=== PATIENT | female | born 1995 | race Caucasian/White ===

== ENCOUNTER 2018-02-20 10:10 | Emergency (ER) | payer OTHER ==
[~2018-02-20 10:10] MED LIST: EMTRICITABINE/TENOFOVIR 200MG/300MG TAB PO SCH; RALTEGRAVIR 400 MG TAB PO SCH
[2018-02-20 10:23] VITALS: BP 176/100
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
[2018-02-20] MEDS ORDERED: AZITHROMYCIN 250 MG TAB PO ONE (13:17)
[2018-02-20] MEDS ORDERED: IBUPROFEN 600 MG TAB PO ONE (13:17)
[2018-02-20] MEDS ORDERED: ONDANSETRON DISINTEGRATING 4 MG TAB PO ONE (13:17)
[2018-02-20] MEDS ORDERED: EMTRICITABINE/TENOFOVIR 200MG/300MG TAB PO ONE (13:39)
[2018-02-20] MEDS ORDERED: RALTEGRAVIR 400 MG TAB PO ONE (13:39)
[2018-02-20 14:56] LABS: PLATELET COUNT 215 10^3/uL (150-400)
[2018-02-22 18:03] LABS: HEPATITIS C ANTIBODY TOTAL NEGATIVE (NEGATIVE)
== END 2018-02-20 16:26 | disposition home or self-care (01) ==
LOC: EEVIPCON 10:10 → SANE 10:10
DX: T74.21XA Adult sexual abuse, confirmed, initial encounter (principal)
CPT/HCPCS: G0472; J0696